=== PATIENT | male | born 1980 | race Caucasian/White ===

== ENCOUNTER 2023-02-10 16:17 | Emergency (ER) | payer BC, MEDICAID, SELFPAY ==
[2023-02-10 16:31] VITALS: BP 160/96; PULSE 77; RESP 20; TEMP 36.9; O2SAT 99; BMI 31.5
[2023-02-10 16:37] VITALS: O2SAT 99
--- NOTE | 2023-02-10 16:42 | ED.GENADUL1 ---
HPI - General Adult General Chief complaint: Recheck/Abnormal Lab/Rx Stated complaint: DENTAL SURGERY-HYPERTENSION Time Seen by Provider: 02/10/23 16:31 Source: patient Mode of arrival: walk-in History of Present Illness HPI narrative: The patient have no previous medical history coming to us after he had a dental deep cleaning today and they measured her blood pressure before arrival it was elevated at his last visit to his primary care doctor was 2 weeks ago and the blood pressure was within normal no recent changes in diet and the patient mentioned that he does not have any complaint at the moment Related Data Allergies Allergy/AdvReac Type Severity Reaction Status Date / Time No Known Drug Allergies Allergy Verified 02/10/23 16:30 Review of Systems ROS Status of ROS 10 or more systems reviewed and unremarkable except as noted in history and below [facility] Social History Smoking status: Never smoker Exam Narrative Exam Narrative: Nurses notes and vital signs reviewed and patient is not hypoxic. General: Well-appearing and in no apparent distress. Skin: Warm, dry, no pallor noted. No rash. Head: Normocephalic, atraumatic. Neck: Supple, non-tender. Eye: Pupils are equal, round and EOMI. No scleral icterus. Ears, Nose, Mouth, and Throat: TM are clear, no nasal mucosal hypertrophy. Oral mucosa is moist, no posterior oropharynx erythema, uvula is mid-line Cardiovascular: Regular Rate and Rhythm without murmur, gallop or rub. Respiratory: No accessory muscle use or respiratory distress. Lungs are clear to auscultation, no wheezing, rales or rhonchi Chest Wall: no tenderness Back: No midline thoracic or lumbar vertebral tenderness. No CVA tenderness Musculoskeletal: normal ROM, no calf or popliteal tenderness, no lower extremity edema/swelling GI: Abdomen is soft, non-distended. Normal bowel sounds. No masses appreciated. No tenderness to palpation. No rebound, guarding, or rigidity noted. Neurological: A&O x4. No cranial nerve dysfunction observed. No truncal ataxia. Moves all extremities. Sensation intact. Psychiatric: Cooperative and interactive. Normal mood and affect. Constitutional Vital Signs, click to edit/add: Last Vital Signs Temp 98.4 F 02/10/23 16:31 Pulse 77 02/10/23 16:31 Resp 20 02/10/23 16:31 BP 160/96 H 02/10/23 16:31 Pulse Ox 99 02/10/23 16:37 O2 Del Method Room Air 02/10/23 16:37 Course Vital Signs Vital signs: Vital Signs Temperature 98.4 F 02/10/23 16:31 Pulse Rate 77 02/10/23 16:31 Respiratory Rate 20 02/10/23 16:31 Blood Pressure 160/96 H 02/10/23 16:31 Pulse Oximetry 99 02/10/23 16:31 Oxygen Delivery Method Room Air 02/10/23 16:31 Temperature 98.4 F 02/10/23 16:31 Pulse Rate 77 02/10/23 16:31 Respiratory Rate 20 02/10/23 16:31 Blood Pressure 160/96 H 02/10/23 16:31 Pulse Oximetry 99 02/10/23 16:37 Oxygen Delivery Method Room Air 02/10/23 16:37 Medical Decision Making MDM Narrative Medical decision making narrative: The patient just coming to the ER because his dentist told him to come to the ER to be elevated but he have no complaints right now there is no indication for the patient to be treated for the high blood pressure he will just follow-up with his primary care doctor for further evaluation of hypertension Decrease salt intake and hydration The patient is to follow up with primary care physician in next 2-3 days or to return to the emergency department should any of the signs or symptoms worsen or new symptoms develop. The patient agrees with the following Diagnosis and Treatment plan and the patient will be discharged home. Discharge Plan Discharge Chief Complaint: Recheck/Abnormal Lab/Rx Clinical Impression: Elevated blood pressure reading Patient Disposition: Home, Self-Care Time of Disposition Decision: 16:41 Condition: Good Instructions: How to Take a Blood Pressure Reading (ED) Stand Alone Forms: Portal Instructions Referrals: Ambika Lopez NP [Primary Care Provider] - 1 week
--- NOTE | 2023-02-10 16:44 | ECG_ITS ---
[facility] Test Date: 2023-02-10 Pat Name: AJAY GARCIA Department: Room: - Gender: Male [employer] Hand: : 1980 Requested By: MICHOACANO PAREDES Order Number: [id number] Reading MD: JANETTE RICHARDS Measurements Intervals [place] Rate: 94 P: 19 MN: 118 QRS: 27 QRSD: 96 T: 8 QT: 354 QTc: 405 Interpretive Statements 1100 Sinus rhythm 1570 with occasional ventricular premature complexes 2210 Short MN interval 4068 Nonspecific Twave abnormality 9150 abnormal ECG No previous ECG available for comparison Electronically Signed On 02-11-2023 7:05:49 EDT by JANETTE RICHARDS
== END 2023-02-10 17:06 | disposition home or self-care (01) ==
PROVIDERS: Emergency Provider Emergency Medicine; PCP Nurse Practitioner
DX: R03.0 Elevated blood-pressure reading, without diagnosis of hypertension (principal)
CPT/HCPCS: 93005; 99283